=== PATIENT | male | born 1965 | race Caucasian/White ===

== ENCOUNTER 2017-01-08 14:25 | Emergency (ER) | payer OTHER ==
[~2017-01-08] VITALS: Ht 180.3 cm; Wt 76.2 kg
[2017-01-08 14:40] VITALS: BP 109/60
== END 2017-01-08 16:00 | disposition home or self-care (01) ==
LOC: ED 14:25
DX: M70.21 Olecranon bursitis, right elbow (principal); Y93.89 Activity, other specified

== ENCOUNTER 2017-01-27 15:42 | Emergency (ER) | payer OTHER ==
[2017-01-27 17:48] VITALS: BP 123/79
== END 2017-01-27 17:48 | disposition home or self-care (01) ==
LOC: ED 15:42
DX: M70.21 Olecranon bursitis, right elbow (principal); L03.113 Cellulitis of right upper limb; Y93.89 Activity, other specified
CPT/HCPCS: J0696; J1100

== ENCOUNTER 2018-07-20 08:40 | Emergency (ER) | payer OTHER ==
[~2018-07-20] VITALS: Ht 185.4 cm; Wt 85.7 kg
[2018-07-20 08:45] VITALS: Ht 185.4 cm; Wt 85.7 kg
[2018-07-20 11:02] VITALS: BP 118/77
== END 2018-07-20 11:02 | disposition home or self-care (01) ==
LOC: ED 08:40
DX: K40.90 Unilateral inguinal hernia, without obstruction or gangrene, not specified as recurrent (principal)

== ENCOUNTER 2018-08-27 18:39 | Emergency (ER) | payer OTHER ==
[~2018-08-27] VITALS: Ht 185.4 cm; Wt 90.7 kg
[2018-08-27 18:47] VITALS: Ht 185.4 cm; Wt 90.7 kg
[2018-08-27 21:16] VITALS: BP 131/78
== END 2018-08-27 21:15 | disposition home or self-care (01) ==
LOC: ED 18:39
DX: N50.89 Other specified disorders of the male genital organs (principal); K59.00 Constipation, unspecified
CPT/HCPCS: J1885

== ENCOUNTER 2020-11-16 11:38 | Emergency (ER) | payer OTHER ==
[~2020-11-16] VITALS: Ht 172.7 cm; Wt 84.4 kg
[2020-11-16 11:55] VITALS: Ht 172.7 cm; Wt 84.4 kg
[2020-11-16 13:07] LABS: BASOPHIL % 0.8 % (0.2-1.5); PLATELET COUNT 251 x10^3mcL (152-348); RED CELL DISTRIBUTION WIDTH 14.1 % (12.1-16.2)
[2020-11-16 13:25] LABS: CARBON DIOXIDE 20.3 mmol/L (21-32); CHLORIDE SERUM 101 mmol/L (98-107); GFR1 > 60 mL/min; GLUCOSE SERUM 97 mg/dL (74-106); POTASSIUM SERUM 3.9 mmol/L (3.5-5.1); SODIUM SERUM 133 mmol/L (136-145)
[2020-11-16 13:39] LABS: ALBUMIN 3.6 g/dL (3.4-5.0); ALKALINE PHOSPHATASE 97 U/L (46-116); ALT/SGPT 33 U/L (16-63); AST/SGOT 21 U/L (15-37); BILIRUBIN TOTAL 0.5 mg/dL (0.20-1.00); TOTAL PROTEIN, SERUM 6.8 g/dL (6.4-8.2)
[2020-11-16 15:42] VITALS: BP 135/80
== END 2020-11-16 15:43 | disposition home or self-care (01) ==
LOC: ED 11:38
PROVIDERS: Student in an Organized Health Care Education/Training Program
DX: R51.9 Headache, unspecified (principal); E87.1 Hypo-osmolality and hyponatremia; Z20.828 Contact with and (suspected) exposure to other viral communicable diseases
CPT/HCPCS: U0003